=== PATIENT | male | born 1985 ===

== ENCOUNTER 2025-02-15 09:08 | Emergency (ER) | payer SELFPAY ==
[~2025-02-15] VITALS: Ht 165.1 cm; Wt 99.7 kg
[~2025-02-15 09:08] MED LIST: CYCL-394 PO; HYDR-569 PO; METH4TAB81 PO; PERM60CR27 TOP; PRED20TA PO; [UNRECOGNIZED DRUG - REMARK]; cymbalta
[2025-02-15 09:18] VITALS: BP 152/96; PULSE 70; RESP 18; TEMP 98; O2SAT 97
[2025-02-15] MEDS ORDERED: ketorolac trometh 30MG/ML vial 30 MG/ML VIAL IM ONE (11:05)
== END 2025-02-15 11:54 | disposition left against medical advice (07) ==
LOC: ER 09:08
DX: R51.9 Headache, unspecified (principal); R11.0 Nausea; H53.8 Other visual disturbances; H53.143 Visual discomfort, bilateral; Z53.21 Procedure and treatment not carried out due to patient leaving prior to being seen by health care provider; Z88.0 Allergy status to penicillin